=== PATIENT | female | born 1970 | race Caucasian/White ===

== ENCOUNTER 2016-07-18 17:37 | Emergency (ER) | payer BC ==
[2016-07-18 17:51] VITALS: BP 155/78
--- NOTE | 2016-07-18 18:21 | UC ---
Rectal Pain HPI - HPI Summary HPI Summary: 45 yo female had a BM this afternoon and noticed her bowl had blood in it NO PAIN not light headed or dizzy no blood thinners - History Of Current Complaint Chief Complaint: UCGeneralIllness Stated Complaint: RECTAL BLEEDING Time Seen by Provider: 07/18/16 18:06 Hx Obtained From: Patient Hx Last Menstrual Period: 03/22/13 Onset/Duration: Sudden Onset, Lasting Minutes Timing: Constant Severity Initially: Mild Severity Currently: None Pain Intensity: 0 Pain Scale Used: 0-10 Numeric Location Of Pain: (No Pain) Aggravating Factor(s): Bowel Movement Alleviating Factor(s): Nothing Associated Signs And Symptoms: Positive: Rectal Bleeding, Bright Red Blood w/ Stool - Allergies/Home Medications Allergies/Adverse Reactions: Allergies Allergy/AdvReac Type Severity Reaction Status Date / Time Penicillins Allergy Severe Hives Verified 07/18/16 17:51 Home Medications: Home Medications Lisinopril/HCTZ 20/25(NF) [Zestoretic 20/25(NF)] 1 tab PO DAILY 07/18/16 [ History Confirmed 07/18/16] Mirtazapine TAB* [Remeron TAB*] 15 mg PO BEDTIME 07/18/16 [History Confirmed 05/05] PMH/Surg Hx/FS Hx/Imm Hx Endocrine History Of: Denies: Diabetes Cardiovascular History Of: Reports: Hypertension Denies: Congestive Heart Failure Cancer History Of: Denies: Breast Cancer - Surgical History Surgical History: Yes Surgery Procedure, Year, and Place: , 03/14/96, tonsillectomy. Uterine Ablation 2013 - Family History Known Family History: Positive: Cardiac Disease, Hypertension, Diabetes - Social History Alcohol Use: Rare Substance Use Type: None Smoking Status (MU): Never Smoked Tobacco - Immunization History Most Recent Influenza Vaccination: not this season Review of Systems Constitutional: Negative Skin: Negative Eyes: Negative ENT: Negative Respiratory: Negative Cardiovascular: Negative Gastrointestinal: Other - BRBPR Genitourinary: Negative Motor: Negative Musculoskeletal: Negative Neurological: Negative Psychological: Negative All Other Systems Reviewed And Are Negative: Yes Physical Exam Triage Information Reviewed: Yes Appearance: Well-Appearing, No Pain Distress, Well-Nourished Vital Signs: Initial Vital Signs Temp 98.5 F 07/18/16 17:46 Pulse 91 07/18/16 17:46 Resp 16 07/18/16 17:46 BP 155/78 07/18/16 17:46 Pulse Ox 99 07/18/16 17:46 Vital Signs Reviewed: Yes Eyes: Positive: Conjunctiva Clear ENT: Positive: Hearing grossly normal. Negative: Nasal congestion, Nasal drainage, Trismus, Muffled/hoarse voice Neck: Positive: Supple, Nontender Respiratory: Positive: Lungs clear, Normal breath sounds, No respiratory distress, No accessory muscle use Cardiovascular: Positive: RRR Abdomen Description: Positive: Nontender, No Organomegaly, Soft, Other: - no hemorrhoid or fissure noted. Negative: CVA Tenderness (R), CVA Tenderness (L), Distended, Guarding, Hernia @, Hepatomegaly, McBurney's Point Tenderness, Peritoneal Signs, Pulsatile Mass, Splenomegaly Musculoskeletal Exam: Normal Musculoskeletal: Positive: ROM Intact, No Edema Neurological: Positive: Alert Psychological Exam: Normal Skin Exam: Normal Rectal Pain Course/Dx - Differential Dx/Diagnosis Provider Diagnoses: rectal bleeding of unknow cause Discharge - Discharge Plan Condition: Stable Disposition: HOME Patient Education Materials: Rectal Bleeding (ED) Referrals: Vishal Gomez MD [Primary Care Provider] - As Soon As Possible Additional Instructions: I could see no source of your bleeding I suggest you call you MD in AM to discuss follow up take a stool softener (like colace) at bedtime x 1-2 weeks recheck for abdominal pain/worsening bleeding or fever
== END 2016-07-18 18:40 | disposition home or self-care (01) ==
LOC: UCCORT 17:37
DX: K92.1 Melena (principal); I10 Essential (primary) hypertension; Z88.0 Allergy status to penicillin
CPT/HCPCS: 99211; G0463

== ENCOUNTER 2018-12-12 09:32 | Emergency (ER) | payer BC ==
[2018-12-12 10:06] VITALS: BP 130/81
--- NOTE | 2018-12-12 10:32 | UC ---
Complaint Female HPI - HPI Summary HPI Summary: 48-year-old female presents with 3 day history of dysuria, frequency, and suprapubic pressure. States today developed hematuria. She contacted her PCP who recommended she be evaluated in urgent care. Past history of renal calculi. Denies fever, chills, back or flank pain, nausea, vomiting, urgency, or vaginal discharge. - History Of Current Complaint Chief Complaint: UCGU Stated Complaint: URINARY COMPLAINT Time Seen by Provider: 12/12/18 10:13 Hx Obtained From: Patient Hx Last Menstrual Period: ablation 2014 Pain Intensity: 0 - Allergies/Home Medications Allergies/Adverse Reactions: Allergies Allergy/AdvReac Type Severity Reaction Status Date / Time Penicillins Allergy Severe Hives Verified 12/12/18 10:07 morphine Allergy Unknown Verified 12/12/18 10:07 Reaction Details paroxetine Allergy Unknown Verified 12/12/18 10:07 Reaction Details Home Medications: Home Medications Multivit-Min/Iron/Folic Acid/K [Bariatric Mv-Iron 45 mg Cap] 1 tab PO DAILY [History Confirmed 12/12/18] PMH/Surg Hx/FS Hx/Imm Hx Cardiovascular History: Hypertension - Surgical History Surgical History: Yes Surgery Procedure, Year, and Place: , 03/14/96, tonsillectomy. Uterine Ablation 2014. bariatric sx 10/2018 - Family History Known Family History: Positive: Cardiac Disease, Hypertension, Diabetes - Social History Occupation: Employed Full-time Lives: With Family Alcohol Use: Rare Substance Use Type: None Smoking Status (MU): Never Smoked Tobacco Have You Smoked in the Last Year: No - Immunization History Most Recent Influenza Vaccination: not this season Most Recent Pneumonia Vaccination: NONE Review of Systems All Other Systems Reviewed And Are Negative: Yes Constitutional: Negative: Fever, Chills Respiratory: Positive: Negative Cardiovascular: Positive: Negative Gastrointestinal: Positive: Abdominal Pain - Suprapubic pressure. Negative: Vomiting, Nausea Genitourinary: Positive: Dysuria, Hematuria, Frequency. Negative: Vaginal/ Penile Discharge, Abnormal Bleeding Musculoskeletal: Positive: Negative Neurological: Positive: Negative Is Patient Immunocompromised?: No Physical Exam - Summary Physical Exam Summary: GENERAL APPEARANCE: Well developed, well nourished, alert and cooperative, and appears to be in no acute distress. CARDIAC: Normal S1 and S2. No S3, S4 or murmurs. Rhythm is regular. There is no peripheral edema, cyanosis or pallor. Extremities are warm and well perfused. Capillary refill is less than 2 seconds. Peripheral pulses intact. LUNGS: Clear to auscultation without rales, rhonchi, wheezing or diminished breath sounds. ABDOMEN: Positive bowel sounds. Soft, nondistended, nontender. No guarding or rebound. No masses or hepatosplenomegally. No CVA tenderness. MUSKULOSKELETAL: ROM intact to all extremities. No joint erythema or tenderness. Normal muscular development. Normal gait. SKIN: Skin normal color, texture and turgor with no lesions or eruptions. Triage Information Reviewed: Yes Vital Signs: Initial Vital Signs Temp 98 F 12/12/18 10:00 Pulse 80 12/12/18 10:00 Resp 18 12/12/18 10:00 BP 130/81 12/12/18 10:00 Pulse Ox 99 12/12/18 10:00 Vital Signs Reviewed: Yes Complaint Female Dx - Course Course Of Treatment: 48-year-old female presents with 3 day history of dysuria, frequency, and suprapubic pressure. States today developed hematuria. She contacted her PCP who recommended she be evaluated in urgent care. Past history of renal calculi. Denies fever, chills, back or flank pain, nausea, vomiting, urgency, or vaginal discharge. Afebrile. Vital signs stable. Patient's exam was overall unremarkable. Nursing reported that patient's urine was too dark and discolored to perform a [id number] urinalysis. I performed a manual dip stick which showed positive leukocyte esterase and positive blood suggestive of a urinary tract infection. I discussed this with the patient and based on her symptoms will treat her empirically for a urinary tract infection with Bactrim DS 1 tablet twice a day 7 days as well as provide her with Pyridium 100 mg 3 times a day for 2 days. Urine culture is still pending. She is to follow-up with her primary care provider in 2-3 days especially if symptoms persist. Anticipatory guidance and warning symptoms are reviewed with the patient. Verbalizes understanding and agrees with plan of care. - Differential Dx/Diagnosis Differential Diagnosis/HQI/PQRI: Renal Colic, Urinary Tract Infection Provider Diagnosis: UTI (urinary tract infection) Discharge ED - Sign-Out/Discharge Documenting (check all that apply): Patient Departure All imaging exams completed and their final reports reviewed: No Studies - Discharge Plan Condition: Stable Disposition: HOME Prescriptions: Phenazopyridine TAB* [Pyridium 100 mg TAB*] 100 mg PO TID #6 tab Sulfamethox/Trimethoprim DS* [Bactrim DS 800/160 TAB*] 1 tab PO BID #14 tab Patient Education Materials: Urinary Tract Infection in Women (ED) Referrals: Eri Barrera PA [Primary Care Provider] - 3 Days Additional Instructions: Due to the dark color of your urine we were unable to test the urine at our site. Based on your symptoms and exam we will start you on an antibiotic to treat for a possible urinary tract infection. We will send a urine to the lab for testing and possible culture. We will contact you if this test would indicate that there is a need to change your treatment plan. Start Bactrim DS 1 tab twice a day for 7 days. Take Pyridium 1 tablet every 8 hours for next 2 days to help with the discomfort. This medication will turn your urine an orange color. Drink plenty of fluids. To help prevent urinary tract infections: 1) Be sure to wipe from front to back. 2) Urinate immediately after any sexual intercourse. 3) Avoid taking bubble baths. Follow up with your primary care provider in 2-3 days if symptoms persist. Seek immediate medical attention in the emergency room if you develop fever greater than 100.5 F, have severe abdominal pain, persistent vomiting, or any worsening of symptoms. - Billing Disposition and Condition Condition: STABLE Disposition: Home - Attestation Statements Provider Attestation: I was available for consult. This patient was seen by the DENNIS. The patient was not presented to, seen by, or examined by me. -Arturo
[2018-12-12 15:01] LABS: Urine Appearance Turbid; Urine Bacteria Absent (Absent); Urine Bilirubin Negative (Negative); Urine Blood 3+ (Negative); Urine Glucose Negative (Negative); Urine Ketones Trace (Negative); Urine Nitrite Negative (Negative); Urine Protein 3+(>=500 mg/dL) (Negative); Urine Red Blood Cell 3+(>10/hpf) (Absent); Urine Specific Gravity 1.023 (1.010-1.030); Urine Urobilinogen Negative (Negative); Urine White Blood Cell 3+(>20/hpf) (Absent)
--- NOTE | 2018-12-13 08:00 | UC ---
- Progress Note Progress Note: Patient seen here for UTI-type symptoms. Patient was started on antibiotics empirically. Patient's urine was unable to be tested here as it was too dark. Patient's UA came back with positive leukocyte esterase, blood, calcium oxalate crystals. I will have the nurses call patient back to see how she is feeling and to tell patient she had blood in her urine. Patient will need to have follow-up with her PCP in 1 week to make sure this goes away. Course/Dx - Diagnoses Provider Diagnoses: UTI (urinary tract infection) Discharge ED - Sign-Out/Discharge Documenting (check all that apply): Post-Discharge Follow Up All imaging exams completed and their final reports reviewed: No Studies - Discharge Plan Condition: Stable Disposition: HOME Prescriptions: Phenazopyridine TAB* [Pyridium 100 mg TAB*] 100 mg PO TID #6 tab Sulfamethox/Trimethoprim DS* [Bactrim DS 800/160 TAB*] 1 tab PO BID #14 tab Patient Education Materials: Urinary Tract Infection in Women (ED) Referrals: Eri Barrera PA [Primary Care Provider] - 3 Days Additional Instructions: Due to the dark color of your urine we were unable to test the urine at our site. Based on your symptoms and exam we will start you on an antibiotic to treat for a possible urinary tract infection. We will send a urine to the lab for testing and possible culture. We will contact you if this test would indicate that there is a need to change your treatment plan. Start Bactrim DS 1 tab twice a day for 7 days. Take Pyridium 1 tablet every 8 hours for next 2 days to help with the discomfort. This medication will turn your urine an orange color. Drink plenty of fluids. To help prevent urinary tract infections: 1) Be sure to wipe from front to back. 2) Urinate immediately after any sexual intercourse. 3) Avoid taking bubble baths. Follow up with your primary care provider in 2-3 days if symptoms persist. Seek immediate medical attention in the emergency room if you develop fever greater than 100.5 F, have severe abdominal pain, persistent vomiting, or any worsening of symptoms. - Billing Disposition and Condition Condition: STABLE Disposition: Home
--- NOTE | 2018-12-14 07:38 | UC ---
- Progress Note Progress Note: Urine culture shows no growth/no UTI. Can discontinue Bactrim prescribed. Course/Dx - Diagnoses Provider Diagnoses: UTI (urinary tract infection) Discharge ED - Sign-Out/Discharge Documenting (check all that apply): Post-Discharge Follow Up All imaging exams completed and their final reports reviewed: No Studies - Discharge Plan Condition: Stable Disposition: HOME Prescriptions: Phenazopyridine TAB* [Pyridium 100 mg TAB*] 100 mg PO TID #6 tab Sulfamethox/Trimethoprim DS* [Bactrim DS 800/160 TAB*] 1 tab PO BID #14 tab Patient Education Materials: Urinary Tract Infection in Women (ED) Referrals: Eri Barrera PA [Primary Care Provider] - 3 Days Additional Instructions: Due to the dark color of your urine we were unable to test the urine at our site. Based on your symptoms and exam we will start you on an antibiotic to treat for a possible urinary tract infection. We will send a urine to the lab for testing and possible culture. We will contact you if this test would indicate that there is a need to change your treatment plan. Start Bactrim DS 1 tab twice a day for 7 days. Take Pyridium 1 tablet every 8 hours for next 2 days to help with the discomfort. This medication will turn your urine an orange color. Drink plenty of fluids. To help prevent urinary tract infections: 1) Be sure to wipe from front to back. 2) Urinate immediately after any sexual intercourse. 3) Avoid taking bubble baths. Follow up with your primary care provider in 2-3 days if symptoms persist. Seek immediate medical attention in the emergency room if you develop fever greater than 100.5 F, have severe abdominal pain, persistent vomiting, or any worsening of symptoms. - Billing Disposition and Condition Condition: STABLE Disposition: Home
== END 2018-12-12 10:58 | disposition home or self-care (01) ==
LOC: UCCORT 09:32
DX: N39.0 Urinary tract infection, site not specified (principal); Z88.0 Allergy status to penicillin; Z88.5 Allergy status to narcotic agent; Z88.8 Allergy status to other drugs, medicaments and biological substances; I10 Essential (primary) hypertension
CPT/HCPCS: 81003; 81015; 87086; 99212; G0463